=== PATIENT | female | born 1985 | race Caucasian/White ===

== ENCOUNTER 2017-11-22 15:39 | Emergency (ER) | payer OTHER ==
[~2017-11-22] VITALS: Ht 154.9 cm; Wt 50.0 kg
[2017-11-22 15:58] VITALS: BP 131/75; PULSE 70; RESP 16; TEMP 98.7; O2SAT 100
--- NOTE | 2017-11-22 16:50 | PD ---
HPI Chief Complaint: Abdominal Pain Time Seen by Provider: 16:38 Travel History International Travel<30 days: No Contact w/Intl Traveler<30days: No Traveled to known affect area: No History of Present Illness HPI Patient is a 32-year-old female presenting to emerge from for evaluation of nausea, vomiting, diarrhea. Patient states it started a week ago after she ate crabs. Patient is [place]ish-speaking, her sister is translating via the phone. She declined formal interpretation. Patient states that every time she eats her stomach becomes cramping and she gets nauseated. She has vomited twice over the last week, she has had one episode of loose stools today, for prior to today. She states the pain is a 5 out of 10, cramping in nature, worse with food intake or fluids. Patient also reports a dull headache when she vomits. She denies any fever chills. She does state that she initially had some blistering on her lips after she ate the crab's but this resolved on its own. She denies any significant past medical history. Symptom onset was gradual, symptoms are moderate in nature. Symptoms appear to be alleviating on their own. PFSH Past Medical History Medical History: Denies Significant Hx ?: Not LMP: Now Social History Alcohol Use: No Tobacco Use: No Substance Use: No Allergies-Medications (Allergen,Severity, Reaction): Coded Allergies: No Known Allergies (Unverified , 11/22/17) Reported Meds & Prescriptions Reported Meds & Active Scripts Active Diclofenac Sodium DR (Diclofenac Sodium) 75 Mg Tabdr 75 Mg PO BID Review of Systems Except as stated in HPI: all other systems reviewed are Neg General / Constitutional: No: Fever, Chills HENT: Positive: Headaches, No: Lightheadedness Respiratory: No: Shortness of Breath Gastrointestinal: Positive: Nausea, Vomiting, Diarrhea, Abdominal Pain, Loss of Appetite Genitourinary: No: Dysuria Physical Exam Narrative GENERAL: Well-developed, well-nourished, well-appearing female. Presenting in no acute distress. SKIN: Warm and dry. HEAD: Atraumatic. Normocephalic. EYES: Pupils equal and round. No scleral icterus. No injection or drainage. ENT: No nasal bleeding or discharge. Mucous membranes pink and moist. NECK: Trachea midline. No JVD. CARDIOVASCULAR: Regular rate and rhythm. RESPIRATORY: No accessory muscle use. Clear to auscultation. Breath sounds equal bilaterally. GASTROINTESTINAL: Abdomen soft, mildly tender diffusely, nondistended. Hepatic and splenic margins not palpable. Positive bowel sounds, no rebound, no guarding. MUSCULOSKELETAL: Extremities without clubbing, cyanosis, or edema. No obvious deformities. NEUROLOGICAL: Awake and alert. No obvious cranial nerve deficits. Motor grossly within normal limits. Five out of 5 muscle strength in the arms and legs. Normal speech. PSYCHIATRIC: Appropriate mood and affect; insight and judgment normal. Data Data Last Documented VS Vital Signs Date Time Temp Pulse Resp B/P (MAP) Pulse Ox O2 Delivery O2 Flow Rate FiO2 11/22/17 15:58 98.7 70 16 131/75 (93) 100 Orders Orders Complete Blood Count With Diff (11/22/17 16:31) Comprehensive Metabolic Panel (11/22/17 16:31) Lipase (11/22/17 16:31) Urinalysis - C+S If Indicated (11/22/17 16:31) Iv Access Insert/Monitor (11/22/17 16:31) Sodium Chlor 0.9% 1000 Ml Inj (Ns 1000 M (11/22/17 17:00) Sodium Chloride 0.9% Flush (Ns Flush) (11/22/17 17:00) Diphenhydramine Inj (Benadryl Inj) (11/22/17 19:45) Prochlorperazine Inj (Compazine Inj) (11/22/17 19:45) Ketorolac Inj (Toradol Inj) (11/22/17 19:45) Ed Discharge Order (11/22/17 20:48) Labs Laboratory Tests Test 11/22/17 17:17 White Blood Count 8.2 TH/MM3 Red Blood Count 4.60 MIL/MM3 Hemoglobin 13.8 GM/DL Hematocrit 41.4 % Mean Corpuscular Volume 89.8 FL Mean Corpuscular Hemoglobin 30.0 PG Mean Corpuscular Hemoglobin Concent 33.3 % Red Cell Distribution Width 12.8 % Platelet Count 433 TH/MM3 Mean Platelet Volume 9.5 FL Neutrophils (%) (Auto) 56.4 % Lymphocytes (%) (Auto) 34.0 % Monocytes (%) (Auto) 6.3 % Eosinophils (%) (Auto) 2.3 % Basophils (%) (Auto) 1.0 % Neutrophils # (Auto) 4.6 TH/MM3 Lymphocytes # (Auto) 2.8 TH/MM3 Monocytes # (Auto) 0.5 TH/MM3 Eosinophils # (Auto) 0.2 TH/MM3 Basophils # (Auto) 0.1 TH/MM3 CBC Comment AUTO DIFF Differential Comment AUTO DIFF CONFIRMED Platelet Estimate NORMAL Platelet Morphology Comment CLUMPED Urine Color YELLOW Urine Turbidity CLEAR Urine pH 6.0 Urine Specific [place] 1.020 Urine Protein NEG mg/dL Urine Glucose (UA) NEG mg/dL Urine Ketones NEG mg/dL Urine Occult Blood LARGE Urine Nitrite NEG Urine Bilirubin NEG Urine Urobilinogen LESS THAN 2.0 MG/DL Urine Leukocyte Esterase TRACE Urine RBC 3 /hpf Urine WBC 3 /hpf Urine Squamous Epithelial Cells 2 /hpf Urine Bacteria OCC /hpf Microscopic Urinalysis Comment CULT NOT INDICATED Blood Urea Nitrogen 10 MG/DL Creatinine 0.73 MG/DL Random Glucose 83 MG/DL Total Protein 8.0 GM/DL Albumin 3.9 GM/DL Calcium Level 9.0 MG/DL Alkaline Phosphatase 105 U/L Aspartate Amino Transf (AST/SGOT) 55 U/L Alanine Aminotransferase (ALT/SGPT) 28 U/L Total Bilirubin 0.4 MG/DL Sodium Level 138 MEQ/L Potassium Level 4.8 MEQ/L Chloride Level 105 MEQ/L Carbon Dioxide Level 24.6 MEQ/L Anion Gap 8 MEQ/L Estimat Glomerular Filtration Rate 93 ML/MIN Lipase 42 U/L MDM Medical Decision Making Medical Screen Exam Complete: Yes Emergency Medical Condition: Yes Interpretation(s) Vital Signs Date Time Temp Pulse Resp B/P (MAP) Pulse Ox O2 Delivery O2 Flow Rate FiO2 11/22/17 15:58 98.7 70 16 131/75 (93) 100 Differential Diagnosis Metabolic abnormality versus gastroenteritis versus pancreatitis versus cholecystitis versus other Narrative Course Patient is a 32-year-old female presented to emerge from for evaluation of abdominal pain, nausea, vomiting, diarrhea. Patient's vital signs are stable, she is well-appearing. Labs ordered and pending. Abdominal exam is essentially benign. Patient will be given IV fluids and will reassess. Labs are pending, patient resting comfortably. Care of patient transferred to Manny ZARATE, he will determine patient's disposition. Scripts Diclofenac Sodium DR (Diclofenac Sodium DR) 75 Mg Tabdr 75 MG PO BID, #14 TAB 0 Refills Prov: Brayden Lieberman MD 11/22/17 Rosmery Quiroz Nov 22, 2017 16:50
[2017-11-22] MEDS ORDERED: SODIUM CHLOR 0.9% 1000 ML INJ 1,000 ML IV ONE (17:00)
[2017-11-22] MEDS ORDERED: SODIUM CHLORIDE 0.9% FLUSH 10 ML FLUSH IV FLUSH ONE (17:00)
[2017-11-22 18:11] LABS: BACTERIA, URINE OCC /hpf; BILIRUBIN, URINE NEG (NEG); BLOOD, URINE LARGE (NEG); GLUCOSE,URINE NEG (NEG); KETONE, URINE NEG (NEG); NITRITE,URINE NEG (NEG); SQUAMOUS EPITHELIAL CELL URINE 2 /hpf (0-5); URINE COLOR YELLOW (YELLW/STRAW); URINE LEUKOCYTE ESTERASE TRACE (NEG)
[2017-11-22 18:36] LABS: AUTOMATED NEUTROPHIL # 4.6 TH/MM3 (1.8-7.7); BASOPHIL # 0.1 TH/MM3 (0-0.2); EOSINOPHIL # 0.2 TH/MM3 (0-0.4); EOSINOPHIL % 2.3 % (0.0-4.0); HEMATOCRIT 41.4 % (35.0-46.0); HEMOGLOBIN 13.8 GM/DL (11.6-15.3); LYMPHOCYTE # 2.8 TH/MM3 (1.0-4.8); MEAN CELL VOLUME 89.8 FL (80.0-100.0); MEAN CORPUSCULAR HGB CONC 33.3 % (32.0-36.0); MEAN PLATELET VOLUME 9.5 FL (7.0-11.0); MONO % 6.3 % (0.0-8.0); MONOCYTE # 0.5 TH/MM3 (0-0.9); NEUT % 56.4 % (16.0-70.0); PLATELET COUNT 433 TH/MM3 (150-450); RED CELL DISTRIBUTION WIDTH 12.8 % (11.6-17.2); WHITE BLOOD COUNT 8.2 TH/MM3 (4.0-11.0)
[2017-11-22 19:03] LABS: ALT (GPT) 28 U/L (10-53)
[2017-11-22 19:06] LABS: ALKALINE PHOSPHATASE 105 U/L (45-117); TOTAL BILIRUBIN ADULT 0.4 MG/DL (0.2-1.0)
[2017-11-22 19:10] LABS: ALBUMIN 3.9 GM/DL (3.4-5.0); AST (GOT) 55 U/L (15-37); BICARBONATE 24.6 MEQ/L (21.0-32.0); BLOOD UREA NITROGEN 10 MG/DL (7-18); CHLORIDE 105 MEQ/L (98-107); CREATININE 0.73 MG/DL (0.50-1.00); GLOMERULAR FILTRATION RATE 93 ML/MIN (>89); GLUCOSE,RANDOM 83 MG/DL (74-106); SODIUM (NA) 138 MEQ/L (136-145)
[2017-11-22] MEDS ORDERED: diphenhydrAMINE HCL 50 MG/ML VIAL IV PUSH ONE (19:45)
[2017-11-22] MEDS ORDERED: PROCHLORPERAZINE INJ 10 MG/2 ML VIAL IV PUSH ONE (19:45)
[2017-11-22] MEDS ORDERED: KETOROLAC TROMETHAMINE 30 MG/ML (IVP) VIAL IV PUSH ONE (19:45)
[2017-11-22] MEDS ORDERED: DICL75TA PO (20:49)
--- NOTE | 2017-11-22 20:52 | PD ---
Physical Exam Date Seen by Provider: Nov 22, 2017 Time Seen by Provider: 20:49 Narrative GENERAL: Well-developed, well-nourished in no acute distress. Nontoxic appearing. HEAD: Normocephalic, atraumatic. EYES: Pupils equal round and reactive. Extraocular motions intact. No scleral icterus. No injection or drainage. ENT: TMs clear without erythema. The external auditory canals clear. Nose: clear . Posterior pharynx is pink and moist. No tonsillar edema or exudate. Uvula midline. Airway patent. NECK: Trachea midline.Supple, nontender, moves head freely. No central bony tenderness or spasm. CARDIOVASCULAR: Regular rate and rhythm without murmurs, gallops, or rubs. RESPIRATORY: Clear to auscultation. Breath sounds equal bilaterally. No wheezes , rales, or rhonchi. GASTROINTESTINAL: Abdomen soft, non-tender, nondistended. No hepato-splenomegaly , or palpable masses. No guarding. EXTREMITIES: No clubbing, cyanosis, or edema. No joint tenderness, effusion, or edema noted. BACK: Nontender without deformity or crepitance. No flank tenderness. Data Data Last Documented VS Vital Signs Date Time Temp Pulse Resp B/P (MAP) Pulse Ox O2 Delivery O2 Flow Rate FiO2 11/22/17 15:58 98.7 70 16 131/75 (93) 100 Orders Orders Complete Blood Count With Diff (11/22/17 16:31) Comprehensive Metabolic Panel (11/22/17 16:31) Lipase (11/22/17 16:31) Urinalysis - C+S If Indicated (11/22/17 16:31) Iv Access Insert/Monitor (11/22/17 16:31) Sodium Chlor 0.9% 1000 Ml Inj (Ns 1000 M (11/22/17 17:00) Sodium Chloride 0.9% Flush (Ns Flush) (11/22/17 17:00) Diphenhydramine Inj (Benadryl Inj) (11/22/17 19:45) Prochlorperazine Inj (Compazine Inj) (11/22/17 19:45) Ketorolac Inj (Toradol Inj) (11/22/17 19:45) Ed Discharge Order (11/22/17 20:48) Labs Laboratory Tests Test 6/12/18 17:17 White Blood Count 8.2 TH/MM3 Red Blood Count 4.60 MIL/MM3 Hemoglobin 13.8 GM/DL Hematocrit 41.4 % Mean Corpuscular Volume 89.8 FL Mean Corpuscular Hemoglobin 30.0 PG Mean Corpuscular Hemoglobin Concent 33.3 % Red Cell Distribution Width 12.8 % Platelet Count 433 TH/MM3 Mean Platelet Volume 9.5 FL Neutrophils (%) (Auto) 56.4 % Lymphocytes (%) (Auto) 34.0 % Monocytes (%) (Auto) 6.3 % Eosinophils (%) (Auto) 2.3 % Basophils (%) (Auto) 1.0 % Neutrophils # (Auto) 4.6 TH/MM3 Lymphocytes # (Auto) 2.8 TH/MM3 Monocytes # (Auto) 0.5 TH/MM3 Eosinophils # (Auto) 0.2 TH/MM3 Basophils # (Auto) 0.1 TH/MM3 CBC Comment AUTO DIFF Differential Comment AUTO DIFF CONFIRMED Platelet Estimate NORMAL Platelet Morphology Comment CLUMPED Urine Color YELLOW Urine Turbidity CLEAR Urine pH 6.0 Urine Specific [place] 1.020 Urine Protein NEG mg/dL Urine Glucose (UA) NEG mg/dL Urine Ketones NEG mg/dL Urine Occult Blood LARGE Urine Nitrite NEG Urine Bilirubin NEG Urine Urobilinogen LESS THAN 2.0 MG/DL Urine Leukocyte Esterase TRACE Urine RBC 3 /hpf Urine WBC 3 /hpf Urine Squamous Epithelial Cells 2 /hpf Urine Bacteria OCC /hpf Microscopic Urinalysis Comment CULT NOT INDICATED Blood Urea Nitrogen 10 MG/DL Creatinine 0.73 MG/DL Random Glucose 83 MG/DL Total Protein 8.0 GM/DL Albumin 3.9 GM/DL Calcium Level 9.0 MG/DL Alkaline Phosphatase 105 U/L Aspartate Amino Transf (AST/SGOT) 55 U/L Alanine Aminotransferase (ALT/SGPT) 28 U/L Total Bilirubin 0.4 MG/DL Sodium Level 138 MEQ/L Potassium Level 4.8 MEQ/L Chloride Level 105 MEQ/L Carbon Dioxide Level 24.6 MEQ/L Anion Gap 8 MEQ/L Estimat Glomerular Filtration Rate 93 ML/MIN Lipase 42 U/L [facility] Medical Record Reviewed: Yes Supervised Visit with ALIA: Yes Interpretation(s) Laboratory Tests Test 11/22/17 17:17 White Blood Count 8.2 TH/MM3 Red Blood Count 4.60 MIL/MM3 Hemoglobin 13.8 GM/DL Hematocrit 41.4 % Mean Corpuscular Volume 89.8 FL Mean Corpuscular Hemoglobin 30.0 PG Mean Corpuscular Hemoglobin Concent 33.3 % Red Cell Distribution Width 12.8 % Platelet Count 433 TH/MM3 Mean Platelet Volume 9.5 FL Neutrophils (%) (Auto) 56.4 % Lymphocytes (%) (Auto) 34.0 % Monocytes (%) (Auto) 6.3 % Eosinophils (%) (Auto) 2.3 % Basophils (%) (Auto) 1.0 % Neutrophils # (Auto) 4.6 TH/MM3 Lymphocytes # (Auto) 2.8 TH/MM3 Monocytes # (Auto) 0.5 TH/MM3 Eosinophils # (Auto) 0.2 TH/MM3 Basophils # (Auto) 0.1 TH/MM3 CBC Comment AUTO DIFF Differential Comment AUTO DIFF CONFIRMED Platelet Estimate NORMAL Platelet Morphology Comment CLUMPED Urine Color YELLOW Urine Turbidity CLEAR Urine pH 6.0 Urine Specific [place] 1.020 Urine Protein NEG mg/dL Urine Glucose (UA) NEG mg/dL Urine Ketones NEG mg/dL Urine Occult Blood LARGE Urine Nitrite NEG Urine Bilirubin NEG Urine Urobilinogen LESS THAN 2.0 MG/DL Urine Leukocyte Esterase TRACE Urine RBC 3 /hpf Urine WBC 3 /hpf Urine Squamous Epithelial Cells 2 /hpf Urine Bacteria OCC /hpf Microscopic Urinalysis Comment CULT NOT INDICATED Blood Urea Nitrogen 10 MG/DL Creatinine 0.73 MG/DL Random Glucose 83 MG/DL Total Protein 8.0 GM/DL Albumin 3.9 GM/DL Calcium Level 9.0 MG/DL Alkaline Phosphatase 105 U/L Aspartate Amino Transf (AST/SGOT) 55 U/L Alanine Aminotransferase (ALT/SGPT) 28 U/L Total Bilirubin 0.4 MG/DL Sodium Level 138 MEQ/L Potassium Level 4.8 MEQ/L Chloride Level 105 MEQ/L Carbon Dioxide Level 24.6 MEQ/L Anion Gap 8 MEQ/L Estimat Glomerular Filtration Rate 93 ML/MIN Lipase 42 U/L Differential Diagnosis . Narrative Course Routine laboratory tests are reviewed. Her CBC, chemistry are unremarkable. She is given liter bolus normal saline. I have reexamined the patient. She states that she is having mainly headache at this time. She is given Benadryl 50 mg IV and Compazine 10 mg IV with resolution of her pain. Patient appears very comfortable this time. I suspect her symptoms are most likely viral in nature. This is viral syndrome Diagnosis Primary Impression: Viral syndrome Patient Instructions: General Instructions Departure Forms: Tests/Procedures, Work Release Special Instructions: No work 2 days. Additional Instruction: Rest. Increase fluids. Medications as directed. Follow-up with a medical doctor in the next 3-5 days for recheck. Return to the ER if any problems. Med/Other Pt SpecificInfo: Prescription(s) given Scripts Diclofenac Sodium DR (Diclofenac Sodium DR) 75 Mg Tabdr 75 MG PO BID, #14 TAB 0 Refills Prov: Brayden Lieberman MD 11/22/17 Disposition: 01 DISCHARGE HOME Condition: Stable Manny Gonzales Nov 22, 2017 20:52
== END 2017-11-22 21:30 | disposition home or self-care (01) ==
LOC: NEPD 15:39
DX: B34.9 Viral infection, unspecified (principal); R51 Headache
CPT/HCPCS: 80053; 81001; 83690; 85025; 96361; 96374; 96375; 99284; J0780; J1200; J7030